=== PATIENT | male | born 1960 | race Caucasian/White ===

== ENCOUNTER → 2024-12-26 | Day surgery (SDC) | payer MEDICARE, OTHER ==
[2024-12-22 16:22] LABS: BASOPHILS % 0.8 % (0.0-1.0); EOSINOPHILS % 4.7 % (0.0-6.0); LYMPHOCYTES % 25.9 % (18.0-39.1); MONOCYTES % 9.7 % (4.4-11.3); NEUTROPHILS % 58.5 % (38.7-80.0); RED CELL DISTRIBUTION WIDTH 12.3 % (11.7-14.4)
[2024-12-22 16:30] LABS: INR 1.6
[2024-12-22 16:38] LABS: CHOL/HDL RATIO 4.4 (3.9-4.7); EST GLOMERULAR FILTRATION RATE 87.0 ML/MIN (>=60); LDL CHOLESTEROL 106.0 MG/DL (60-130)
[~2024-12-26] VITALS: Ht 180.3 cm; Wt 145.1 kg
[2024-12-26] VITALS (10 sets, daily range): BP systolic 126–165; BP diastolic 67–88; PULSE 68–72; RESP 15–20; TEMP 97.7; O2SAT 95–98
[~2024-12-26] MED LIST: ASPIR 8181 MG PO; ASPIRIN EC81 MG PO; BUPROPION HCL75 MG PO; BUPROPION XL150 MG PO; CITALOPRAM HBR20 MG PO; FENTANYL CITRATE/PF 100MCG/2 ML INJ ONE; HEPARIN SOD (PORCINE) 1000 UNIT/ML 30ML ONE; HEPARIN SOD/SOD CHLORIDE 2,000 ML ONE; IOPAMIDOL 370 MG/ML 100 ML INFUS..BTL INJ ONE; LIDOCAINE HCL 2% LOCAL 20 ML VIAL ONE; LIPITOR20 MG PO; LOSARTAN POTAS100 MG PO; METOPROLOL SUCC25 MG PO; MIDAZOLAM HCL 2 MG/2 ML VIAL ONE; MULTI-VITAMIN1 EACH PO; SODIUM CHLORIDE 0.9% 1000ML 1,000 ML ONE; VERAPAMIL HCL 2.5 MG/ML 2 ML VIAL ONE; WARFARIN SODIUM5 MG PO
== END | disposition home or self-care (01) ==
LOC: MERGE 06:00 → CATH LAB 06:00
PROVIDERS: ATTEND Internal Medicine Cardiovascular Disease
DX: I25.700 Atherosclerosis of coronary artery bypass graft(s), unspecified, with unstable angina pectoris (principal); R94.39 Abnormal result of other cardiovascular function study; I10 Essential (primary) hypertension; E78.5 Hyperlipidemia, unspecified; Z95.1 Presence of aortocoronary bypass graft; Z01.812 Encounter for preprocedural laboratory examination; Z01.818 Encounter for other preprocedural examination; Z79.01 Long term (current) use of anticoagulants; Z79.82 Long term (current) use of aspirin; Z79.899 Other long term (current) drug therapy; Z68.42 Body mass index [BMI] 45.0-49.9, adult; Z95.2 Presence of prosthetic heart valve; Z82.49 Family history of ischemic heart disease and other diseases of the circulatory system
CPT/HCPCS: 36415; 71046; 76937; 80048; 80061; 85025; 85610; 85730; 93459; C1769 ×2; C1887 ×2; J1644; J2003; J2250; J3010; J7030; Q9967; 93455; 99152; 99153